=== PATIENT | female | born 1945 | race Caucasian/White ===

== ENCOUNTER → 2022-12-14 10:33 | Outpatient (BNVA) | payer MEDICARE, SELFPAY | PROVIDERS: Family Provider Family Medicine; PCP Family Medicine; Visit Provider Emergency Medicine | DX: R39.9 Unspecified symptoms and signs involving the genitourinary system (principal); N39.0 Urinary tract infection, site not specified | CPT/HCPCS: 81000; 87086 ==

== ENCOUNTER → 2023-04-29 09:47 | Outpatient (BNVA) | payer MEDICARE, SELFPAY | PROVIDERS: Family Provider Family Medicine; PCP Family Medicine; Visit Provider Podiatrist Foot & Ankle Surgery | DX: Q82.8 Other specified congenital malformations of skin (principal); M21.621 Bunionette of right foot; M21.622 Bunionette of left foot | CPT/HCPCS: 17110; 99203 ==

== ENCOUNTER → 2023-06-24 09:57 | Outpatient (BNVA) | payer MEDICARE, SELFPAY | PROVIDERS: Family Provider Family Medicine; PCP Family Medicine; Visit Provider Podiatrist Foot & Ankle Surgery | DX: L84 Corns and callosities (principal); Q82.8 Other specified congenital malformations of skin; M21.621 Bunionette of right foot; M21.622 Bunionette of left foot | CPT/HCPCS: 17110 ==

== ENCOUNTER → 2023-09-30 09:35 | Outpatient (BNVA) | payer MEDICARE, SELFPAY | PROVIDERS: Family Provider Family Medicine; PCP Family Medicine; Visit Provider Podiatrist Foot & Ankle Surgery | DX: M21.621 Bunionette of right foot (principal); M21.622 Bunionette of left foot; Q82.8 Other specified congenital malformations of skin | CPT/HCPCS: 17110 ==

== ENCOUNTER → 2024-01-05 08:15 | Outpatient (BNVA) | payer MEDICARE, SELFPAY | PROVIDERS: Family Provider Family Medicine; PCP Family Medicine; Visit Provider Podiatrist Foot & Ankle Surgery | DX: Q82.8 Other specified congenital malformations of skin (principal) | CPT/HCPCS: 17110 ==

== ENCOUNTER → 2024-04-12 10:13 | Outpatient (BNVA) | payer MEDICARE, SELFPAY | PROVIDERS: Family Provider Family Medicine; PCP Family Medicine; Visit Provider Podiatrist Foot & Ankle Surgery | DX: Q82.8 Other specified congenital malformations of skin (principal) | CPT/HCPCS: 17110 ==

== ENCOUNTER → 2024-07-19 09:35 | Outpatient (BNVA) | payer MEDICARE, SELFPAY | PROVIDERS: Family Provider Family Medicine; PCP Family Medicine; Visit Provider Podiatrist Foot & Ankle Surgery | DX: Q82.8 Other specified congenital malformations of skin (principal) | CPT/HCPCS: 17110 ==

== ENCOUNTER → 2024-11-01 10:37 | Outpatient (BNVA) | payer MEDICARE, SELFPAY | PROVIDERS: Family Provider Family Medicine; PCP Family Medicine; Visit Provider Podiatrist Foot & Ankle Surgery | DX: Q82.8 Other specified congenital malformations of skin (principal) | CPT/HCPCS: 17110 ==

== ENCOUNTER → 2025-02-27 10:32 | Outpatient (BNVA) | payer MEDICARE, SELFPAY | PROVIDERS: Family Provider Family Medicine; PCP Family Medicine; Visit Provider Podiatrist Foot & Ankle Surgery | DX: Q82.8 Other specified congenital malformations of skin (principal) | CPT/HCPCS: 17110 ==